=== PATIENT | male | born 1945 | race Caucasian/White ===

== ENCOUNTER → 2021-06-25 | Outpatient (CLI) | payer MEDICARE, OTHER ==
[~2021-06-25] MED LIST: CETIRIZINE HCL10 MG PO; ECOTRIN81 MG PO; GABAPENTIN300 MG PO; PROTONIX40 MG PO; TOPROL XL25 MG PO; ZANTAC150 MG PO
== END ==
LOC: CT 11:52
DX: N39.0 Urinary tract infection, site not specified (principal); R39.89 Other symptoms and signs involving the genitourinary system; R31.9 Hematuria, unspecified; R10.9 Unspecified abdominal pain; N28.1 Cyst of kidney, acquired; K40.90 Unilateral inguinal hernia, without obstruction or gangrene, not specified as recurrent
CPT/HCPCS: 36415; 82565; Q9967